=== PATIENT | female | born 1985 | race Caucasian/White ===

== ENCOUNTER 2016-10-10 19:26 | Emergency (ER) | payer MEDICAID ==
[~2016-10-10] VITALS: Ht 177.8 cm; Wt 73.6 kg
[~2016-10-10 19:26] MED LIST: ALPRAZOLAM; AUGMENTIN 875 M1 TAB PO; BACTRIM DS 8001 TAB PO; CLEOCIN HC150 MG/CAP PO; CLINDAMYCIN HC150 MG PO; CYMBALTA; DARVOCET-N-101 UDTAB PO; EFFEXOR; ERYTHROCIN STE500 M1 PO; FLEXERIL10 MG PO; KLONOPIN 1MG1 MG; LORTAB 5/500 501 TAB PO; METRONIDAZOLE500 MG PO; NAPROSYN PO; NO HOME MEDICATIONS; NORCO 325 MG-51 TAB PO; NORCO 325 MG-7.1 TAB PO; NORVASC 5MG5 MG/TAB PO; PERCOCET 5/321 UDTAB PO; PREDNISONE10 MG PO; PYRIDIUM200 M1 PO; tussionex PO
[2016-10-10 19:34] VITALS: BP 134/59; TEMP 98.6
[2016-10-10] MEDS ORDERED: BACTROBAN22 TOP (20:23)
[2016-10-10 20:36] VITALS: PULSE 90
== END 2016-10-10 20:37 | disposition home or self-care (01) ==
LOC: COL.ER 19:26
DX: R21 Rash and other nonspecific skin eruption (principal); F41.9 Anxiety disorder, unspecified; Z98.51 Tubal ligation status; F17.210 Nicotine dependence, cigarettes, uncomplicated

== ENCOUNTER 2016-10-13 15:40 | Emergency (ER) | payer MEDICAID ==
[~2016-10-13] VITALS: Ht 175.3 cm; Wt 72.7 kg
[~2016-10-13 15:40] MED LIST changes: +BACTROBAN22 TOP
[2016-10-13 15:42] VITALS: BP 114/57; TEMP 97.6
[2016-10-13] MEDS ORDERED: CYMBALTA 30MG30 MG PO (15:44)
[2016-10-13] MEDS ORDERED: VISTARIL 2525 MG/CAP PO (15:44)
[2016-10-13] MEDS ORDERED: FLEXERIL5 MG PO (15:45)
[2016-10-13] MEDS ORDERED: DEPAKOTE ER 25250 MG PO (15:46)
[2016-10-13 16:39] LABS: BASO % 0.2 % (0.0-2.0); EOS # 0.1 (0.0-0.7); EOS % 0.7 % (0-4.0); GRAN % 61.1 % (42.2-75.2); HEMOGLOBIN 13.5 g/dl (12.5-16.0); LYMPH # 2.6 (1.2-3.4); LYMPH % 32.5 % (20.0-51.0); MEAN CELL VOLUME 94 fl (80.0-100.0); MEAN CORPUSCULAR HEMOGLOBIN 32 pg (27.0-31.0); MEAN CORPUSCULAR HGB CONC 34 g/dl (33.0-37.0); MEAN PLATELET VOLUME 10.3 fl (7.4-10.4); MONO # 0.4 (0.1-0.6); MONO % 5.3 % (1.7-9.3); PLATELET COUNT 228 K/mm3 (130-400); RED BLOOD COUNT 4.25 M/mm3 (4.10-5.30); WHITE BLOOD COUNT 8.1 K/mm3 (4.8-10.8)
[2016-10-13 16:50] LABS: ADJUSTED CALCIUM 9.3 mg/dL (8.4-10.2); ALBUMIN 3.9 gm/dL (3.5-5.0); BILIRUBIN,TOTAL 0.3 mg/dL (0.0-1.0); CALCIUM 9.2 mg/dL (8.4-10.2); CREATININE, serum 0.59 mg/dL (0.52-1.25); POTASSIUM 3.5 mmol/L (3.4-5.0); TOTAL PROTEIN 6.8 gm/dL (6.4-8.2)
[2016-10-13 17:12] VITALS: PULSE 84
== END 2016-10-13 17:13 | disposition home or self-care (01) ==
LOC: COL.ER 15:40
PROVIDERS: Nurse Practitioner
DX: R20.2 Paresthesia of skin (principal); R20.0 Anesthesia of skin; I10 Essential (primary) hypertension; F17.210 Nicotine dependence, cigarettes, uncomplicated; F41.9 Anxiety disorder, unspecified; F31.9 Bipolar disorder, unspecified; I73.00 Raynaud's syndrome without gangrene; X50.3XXA Overexertion from repetitive movements, initial encounter

== ENCOUNTER → 2021-07-06 | Emergency (ER) | payer SELFPAY ==
[~2021-07-06] VITALS: Ht 175.3 cm; Wt 75.0 kg
[~2021-07-06] MED LIST changes: +CYMBALTA 30MG30 MG PO; +DEPAKOTE ER 25250 MG PO; +FLEXERIL5 MG PO; +VISTARIL 2525 MG/CAP PO
[2021-07-06 10:11] VITALS: BP 112/67; PULSE 83; TEMP 97.6
[2021-07-06 11:13] LABS: COLLECTION METHOD CLEAN CATCH
[2021-07-06 11:24] LABS: PH 6 (5-8); URINE APPEARANCE Hazy (CLEAR/HAZY); URINE BACTERIA Rare /hpf (NONE SEEN); URINE BILIRUBIN Negative (NEGATIVE); URINE BLOOD 3+ (NEGATIVE); URINE COLOR Yellow (YELLOW); URINE GLUCOSE Negative (NEGATIVE); URINE KETONE Negative (NEGATIVE); URINE LEUKOCYTE ESTERASE Negative (NEGATIVE); URINE NITRATE Negative (NEGATIVE); URINE PROTEIN(semi-quant) Negative (NEGATIVE); URINE UROBILINOGEN Negative (NEGATIVE)
== END ==
LOC: COL.ER 10:06
PROVIDERS: Nurse Practitioner Primary Care
DX: M54.50 Low back pain, unspecified (principal); F17.200 Nicotine dependence, unspecified, uncomplicated; Z88.5 Allergy status to narcotic agent; X50.0XXA Overexertion from strenuous movement or load, initial encounter
CPT/HCPCS: J1885

== ENCOUNTER 2021-08-03 07:13 | Emergency (ER) | payer SELFPAY ==
[~2021-08-03] VITALS: Ht 175.3 cm; Wt 75.0 kg
[2021-08-03 07:23] VITALS: TEMP 98.1
[2021-08-03] MEDS ORDERED: CLEOCIN HCL300 MG PO (07:40)
[2021-08-03 07:52] VITALS: BP 114/66; PULSE 72
== END 2021-08-03 07:52 | disposition home or self-care (01) ==
LOC: COL.ER 07:13
DX: L02.01 Cutaneous abscess of face (principal); L08.9 Local infection of the skin and subcutaneous tissue, unspecified; Z88.0 Allergy status to penicillin

== ENCOUNTER 2021-09-29 06:56 | Emergency (ER) | payer SELFPAY ==
[~2021-09-29] VITALS: Ht 172.7 cm; Wt 72.7 kg
[~2021-09-29 06:56] MED LIST changes: +CLEOCIN HCL300 MG PO
[2021-09-29 07:06] VITALS: TEMP 98.6
[2021-09-29] MEDS ORDERED: REVIA 50MG TABL50 MG PO (07:20)
[2021-09-29] MEDS ORDERED: DESYREL 100MG100 MG PO (07:20)
[2021-09-29 07:42] LABS: COLLECTION METHOD CLEAN CATCH
[2021-09-29 07:48] LABS: BASO # 0.1 K/mm3 (0.0-0.2); BASO % 0.5 % (0.0-2.0); EOS # 0.1 K/mm3 (0.0-0.7); EOS % 0.6 % (0.0-4.0); GRAN # 5.6 K/mm3 (1.4-6.5); GRAN % 55.9 % (42.2-75.2); HEMATOCRIT 42.2 % (37.0-47.0); HEMOGLOBIN 14.3 g/dl (12.5-16.0); LYMPH # 3.5 K/mm3 (1.2-3.4); LYMPH % 35.4 % (20.0-51.0); MEAN CELL VOLUME 87 fl (80.0-100.0); MEAN CORPUSCULAR HEMOGLOBIN 30 pg (27-31); MEAN CORPUSCULAR HGB CONC 34 g/dl (33.0-37.0); MEAN PLATELET VOLUME 9.1 fl (7.4-10.4); MONO # 0.7 K/mm3 (0.1-0.6); MONO % 7.4 % (1.7-9.3); PLATELET COUNT 304 K/mm3 (130-400); RED BLOOD COUNT 4.83 M/mm3 (4.10-5.30); REDCELL DISTRIBUTION WIDTH-CV 13.4 % (11.5-14.5)
[2021-09-29 08:03] LABS: ALBUMIN 3.8 gm/dL (3.5-5.0); C-REACTIVE PROTEIN 0.06 mg/dL (0.00-0.50); CALCIUM 8.9 mg/dL (8.4-10.2); CREATININE, serum 0.76 mg/dL (0.57-1.11); POTASSIUM 3.4 mmol/L (3.5-4.5); TOTAL PROTEIN 6.9 gm/dL (6.2-8.1)
[2021-09-29 08:05] LABS: MUCOUS Present (NOT PRESENT); PH 6 (5-8); URINE APPEARANCE Hazy (CLEAR/HAZY); URINE BACTERIA Rare /hpf (NONE SEEN); URINE BLOOD Negative (NEGATIVE); URINE COLOR Yellow (YELLOW); URINE GLUCOSE Negative (NEGATIVE); URINE KETONE Negative (NEGATIVE); URINE NITRATE Negative (NEGATIVE); URINE PROTEIN(semi-quant) Negative (NEGATIVE); URINE RBC 0-2 /hpf (0-2)
[2021-09-29 08:32] VITALS: BP 104/65; PULSE 75
== END 2021-09-29 08:34 | disposition home or self-care (01) ==
LOC: COL.ER 06:56
PROVIDERS: Family Medicine
DX: K52.9 Noninfective gastroenteritis and colitis, unspecified (principal); F17.290 Nicotine dependence, other tobacco product, uncomplicated; Z20.822 Contact with and (suspected) exposure to COVID-19
CPT/HCPCS: C9113; J2405

== ENCOUNTER 2021-10-14 09:56 | Emergency (ER) | payer SELFPAY ==
[~2021-10-14 09:56] MED LIST changes: +DESYREL 100MG100 MG PO; +REVIA 50MG TABL50 MG PO
== END 2021-10-14 10:31 | disposition left against medical advice (07) ==
LOC: COL.ER 09:56
DX: K92.9 Disease of digestive system, unspecified (principal)

== ENCOUNTER 2022-05-20 13:33 | Emergency (ER) | payer SELFPAY ==
[~2022-05-20] VITALS: Ht 172.7 cm; Wt 72.7 kg
[~2022-05-20 13:33] MED LIST changes: +PREDNISONE20 MG PO
[2022-05-20 13:43] VITALS: TEMP 98.2
[2022-05-20 14:19] LABS: COLLECTION METHOD CLEAN CATCH
[2022-05-20 14:33] LABS: URINE BACTERIA Occasional /hpf (NONE SEEN); URINE RBC 0-2 /hpf (0-2)
[2022-05-20 14:34] LABS: PH 5.5 (5.0-8.5); URINE APPEARANCE Clear (CLEAR/HAZY); URINE BLOOD Negative (NEGATIVE); URINE COLOR Yellow (YELLOW); URINE GLUCOSE Negative (NEGATIVE); URINE KETONE Negative (NEGATIVE); URINE NITRATE Negative (NEGATIVE); URINE PROTEIN(semi-quant) Negative (NEGATIVE); URINE UROBILINOGEN 0.2 E.U/dL (0.2-1.0)
[2022-05-20] MEDS ORDERED: FLEXERIL 1010 MG/TAB PO (14:47)
[2022-05-20 15:11] VITALS: BP 126/74; PULSE 82
== END 2022-05-20 15:12 | disposition home or self-care (01) ==
LOC: COL.ER 13:33
PROVIDERS: Physician Assistant
DX: M54.50 Low back pain, unspecified (principal); G89.29 Other chronic pain; F17.200 Nicotine dependence, unspecified, uncomplicated; Z28.310 Unvaccinated for COVID-19; X50.0XXA Overexertion from strenuous movement or load, initial encounter
CPT/HCPCS: J2360

== ENCOUNTER 2022-06-21 18:30 | Emergency (ER) | payer OTHER ==
[~2022-06-21] VITALS: Ht 172.7 cm; Wt 72.7 kg
[~2022-06-21 18:30] MED LIST changes: +FLEXERIL 1010 MG/TAB PO
[2022-06-21 20:08] VITALS: BP 100/72; PULSE 70; TEMP 98.3
[2022-06-21] MEDS ORDERED: MEDROL 4MG DOSPA4 MG PO (20:08)
== END 2022-06-21 20:17 | disposition home or self-care (01) ==
LOC: COL.ER 18:30
DX: M54.50 Low back pain, unspecified (principal); G89.29 Other chronic pain; F17.290 Nicotine dependence, other tobacco product, uncomplicated; Z28.311 Partially vaccinated for COVID-19
CPT/HCPCS: J2360

== ENCOUNTER 2023-08-25 17:09 | Emergency (ER) | payer OTHER ==
[~2023-08-25] VITALS: Ht 175.3 cm; Wt 90.9 kg
[~2023-08-25 17:09] MED LIST changes: +CEFTIN500 MG PO; +MEDROL 4MG DOSPA4 MG PO; +NAPROSYN500 MG PO
[2023-08-25] MEDS ORDERED: dexAMETHasone 10 MG/ML VIAL IM ONE (19:45)
[2023-08-25] MEDS ORDERED: Cyclobenzaprine 10 MG TAB PO ONE (19:45)
[2023-08-25] MEDS ORDERED: FLEXERIL 1010 MG/TAB PO (19:49)
[2023-08-25 19:52] VITALS: BP 137/71; PULSE 78; TEMP 97.6
== END 2023-08-25 19:59 | disposition home or self-care (01) ==
LOC: COL.ER 17:09
DX: M54.42 Lumbago with sciatica, left side (principal)
CPT/HCPCS: J1100